=== PATIENT | male | born 1955 | race Caucasian/White ===

== ENCOUNTER 2016-07-11 22:22 | Emergency (ER) | payer OTHER ==
[~2016-07-11 22:22] MED LIST: *UNABLE1; ALBUTEROL5 INH; ASA5GR PO; ASAB PO; ASABAYER PO; AUG875 PO; BEN25 PO; BROVANA15 MCG INH; CEFT5 PO; CENTRUM PO; DALIRESP500 MCG PO; DULERA 100 MCG/13 GM INH; DULERA 200 MCG/13 GM INH; DULERA INH; DUONEB INH; FENESIN IR400 MG PO; FLOMAX4 PO; FLOVENT44 INH; LEVAQUIN5T PO; MEDROLPAK4 PO; MUCINEX600 MG PO; MULTIVIT/MIN PO; P10; P10 PO; P20; P20 PO; P5 PO; PROAIR HFA INH; PROVENTSOL INH; PROVHFA PO; PULRESP1 INH; QVAR40 MC1 INH; SPIRIVA INH; T200 PO; THEOPHYLLINE PO; VENTOLIN HFA INH; VIBRATAB100 MG PO; ZITH250 PO
[2016-07-11 23:17] LABS: BASOPHILS 0.1 %; BASOPHILS ABSOLUTE 0.01 10/3/uL (0.0-0.16); EOSINOPHILS 0 %; ER CBC TAT 0 Hrs 05 Mins; HEMATOCRIT 38.2 % (40.0-51.0); IMMATURE GRANULOCYTES 0.8 %; IMMATURE GRANULOCYTES ABSOLUTE 0.09 10/3/uL (0.0-0.11); LYMPHOCYTES 6.1 %; LYMPHOCYTES ABSOLUTE 0.72 10/3/uL (0.67-4.30); MEAN CORPUS HGB CONC 31.4 g/dL (32.0-36.0); MEAN CORPUSCULAR HEMOGLOB 29.6 pg (26.0-34.0); MEAN PLATELET VOLUME 8.3 fL (9.2-13.0); MONOCYTES 8.1 %; MONOCYTES ABSOLUTE 0.96 10/3/uL (0.21-1.20); NEUTROPHILS 84.9 %; NEUTROPHILS ABSOLUTE 10.04 10/3/uL (2.02-8.40); PLATELET COUNT 297 10/3/uL (150-400); RBC DISTRIBUTION WIDTH 15.2 % (12.0-16.0); RED CELL COUNT 4.06 10/6/uL (4.7-6.1); WHITE BLOOD CELLS 11.8 10/3/uL (4.5-10.5)
[2016-07-11 23:20] LABS: MANUAL DIFF NO %; MEAN CORPUSCULAR VOLUME 94.1 fL (80-100)
[2016-07-11 23:32] LABS: A/G RATIO 0.5 (0.7-1.9); ALBUMIN 2.7 G/DL (3.5-5.0); CHLORIDE, SERUM 92 MMOL/L (96-112); CREATININE 0.84 MG/DL (0.70-1.30); GFR AFRICAN AMERICAN 110 ML/MIN (>=60); GFR NON AFRICAN AMERICAN 95 ML/MIN (>=60); GLUCOSE, SERUM 124 MG/DL (60-99); POTASSIUM, SERUM 4.6 MMOL/L (3.5-5.3); SGOT(AST) 16 U/L (5-40); SGPT(ALT) 18 U/L (5-65); SODIUM, SERUM 138 MMOL/L (135-148); TOTAL BILIRUBIN 0.1 MG/DL (0-1.2); TOTAL PROTEIN 7.7 G/DL (6.0-8.5)
[2016-07-11 23:33] LABS: ALKALINE PHOSPHATASE 63 U/L (45-117); BUN (BLOOD UREA NITROGEN) 22 MG/DL (6-23); CO2 (CARBON DIOXIDE) 42 MMOL/L (24-34)
== END 2016-07-12 01:03 | disposition home or self-care (01) ==
LOC: ER 22:22
PROVIDERS: Emergency Medicine
DX: J44.1 Chronic obstructive pulmonary disease with (acute) exacerbation (principal); R07.89 Other chest pain; Z87.891 Personal history of nicotine dependence; F41.9 Anxiety disorder, unspecified; Z91.041 Radiographic dye allergy status; Z79.82 Long term (current) use of aspirin; Z79.52 Long term (current) use of systemic steroids; Z79.899 Other long term (current) drug therapy
CPT/HCPCS: 71010; 80053; 84484; 85025; 87040; 87070; 87205; 93005; 94640; 96374; 99285; A9270-GY; J2930